=== PATIENT | male | born 1990 | race Caucasian/White ===

== ENCOUNTER 2019-01-13 16:44 | Emergency (ER) | payer SELFPAY ==
--- NOTE | 2019-01-13 17:41 | ER Document Report ---
ED Medical Screen (RME) - General Chief Complaint: Chest Pain Stated Complaint: CHEST PAIN Time Seen by Provider: 01/13/19 17:36 - HPI Notes: 01/13/19 17:39 Patient is a 28-year-old male with no significant past medical history presents complaining of chest pain. Patient states that the pain started a couple days ago. He has had an occ dry cough for the past couple weeks. Denies drug allergies. He is able to eat and drink without difficulty. He is urinating normally and having normal bowel movements. Denies any prolonged immobilization, distance travel, recent surgery/trauma, personal cancer history, hormone use, smoking, or previous DVT/PE. Denies GEORGES, fever, neck pain, URI, n/v/d, SOB, dyspnea, Abd pain, dysuria, back pain, or rash. I have treated and performed a rapid initial assessment of this patient. A co mprehensive ED assessment and evaluation of the patient, analysis of test results and completion of medical decision making process will be conducted by additional ED providers. PHYSICAL EXAMINATION: GENERAL: Well-appearing, well-nourished and in no acute distress. A&Ox4. Answers questions appropriately. LUNGS: Breath sounds clear to auscultation bilaterally and equal. No wheezes rales or rhonchi. HEART: Regular rate and rhythm without murmurs, rubs, gallops. Extremities: No cyanosis, clubbing, or edema b/l. Jean-Claude negative bilaterally. No lower extremity asymmetry. NEUROLOGICAL: Normal speech, normal gait. PSYCH: Normal mood, normal affect. - Related Data Allergies/Adverse Reactions: No Known Allergies Allergy (Unverified 01/13/19 17:35) Physical Exam - Vital signs Vitals: Temp Pulse Resp BP Pulse Ox 98.1 F 80 16 128/80 H 100 01/13/19 17:18 01/13/19 17:18 01/13/19 17:18 01/13/19 17:18 01/13/19 17:18 Course - Vital Signs Vital signs: Temp Pulse Resp BP Pulse Ox 98.1 F 80 16 128/80 H 100 01/13/19 17:18 01/13/19 17:18 01/13/19 17:18 01/13/19 17:18 01/13/19 17:18
--- NOTE | 2019-01-13 18:19 | RADIOLOGY REPORT (SQ) ---
EXAM DESCRIPTION: CHEST 2 VIEWS COMPLETED DATE/TIME: 01/13/2019 5:51 pm REASON FOR STUDY: CP COMPARISON: None. EXAM PARAMETERS: NUMBER OF VIEWS: two views TECHNIQUE: Digital Frontal and Lateral radiographic views of the chest acquired. RADIATION DOSE: NA LIMITATIONS: none FINDINGS: LUNGS AND PLEURA: No opacities, masses or pneumothorax. No pleural effusion. MEDIASTINUM AND HILAR STRUCTURES: No masses or contour abnormalities. HEART AND VASCULAR STRUCTURES: Heart normal size. No evidence for failure. BONES: No acute findings. HARDWARE: None in the chest. OTHER: No other significant finding. IMPRESSION: NO ACUTE RADIOGRAPHIC FINDING IN THE CHEST. TECHNICAL DOCUMENTATION: JOB ID: [id number] TE2- All Rights Reserved Reading location - IP/workstation name: [email or web address]
[2019-01-13 18:35] LABS: ABSOLUTE EOSINOPHILS # (AUTO) 0.1 10^3/uL (0.0-0.6); ABSOLUTE LYMPHOCYTES (AUTO) 2.4 10^3/uL (0.5-4.7); ABSOLUTE MONOCYTES (AUTO) 0.5 10^3/uL (0.1-1.4); ABSOLUTE NEUT (AUTO) 2.9 10^3/uL (1.7-8.2); BASOPHILS % (AUTO) 0.7 % (0-2); EOSINOPHILS % (AUTO) 1.2 % (0-6); HEMATOCRIT 47.4 % (37.9-51.0); HEMOGLOBIN 16.7 g/dL (13.5-17.0); LYMPHOCYTES % (AUTO) 40.8 % (13-45); MEAN CORPUSCULAR HEMOGLOBIN 30.9 pg (27.0-33.4); MEAN CORPUSCULAR HGB CONC 35.3 g/dL (32.0-36.0); MEAN CORPUSCULAR VOLUME 88 fl (80-97); MONOCYTES % (AUTO) 8.5 % (3-13); PLATELET COUNT 242 10^3/uL (150-450); RED BLOOD COUNT 5.42 10^6/uL (4.35-5.55); SEGMENTED NEUTROPHILS % (AUTO) 48.8 % (42-78); TOTAL CELLS COUNTED % (AUTO) 100 %
[2019-01-13 18:59] LABS: ALBUMIN 4.7 g/dL (3.5-5.0); ALKALINE PHOSPHATASE 51 U/L (38-126); ANION GAP 12 (5-19); ASPARTATE AMINO TRANSFERASE 33 U/L (17-59); BILIRUBIN,DIRECT 0.1 mg/dL (0.0-0.4); BILIRUBIN,TOTAL 0.7 mg/dL (0.2-1.3); BLOOD UREA NITROGEN 12 mg/dL (7-20); CALCIUM 9.5 mg/dL (8.4-10.2); CARBON DIOXIDE 26 mmol/L (22-30); CHLORIDE 104 mmol/L (98-107); GLUCOSE 87 mg/dL (75-110); POTASSIUM 4.3 mmol/L (3.6-5.0); TOTAL PROTEIN 7.8 g/dL (6.3-8.2)
[2019-01-13] MEDS ORDERED: SUCRALFATE 1 GM TABLET PO ONE (19:08)
[2019-01-13] MEDS ORDERED: IPRATROPIUM/ALBUTEROL 0.5-2.5 MG/3 ML AMPUL NEB ONE (19:08)
[2019-01-13] MEDS ORDERED: FAMOTIDINE 20 MG TABLET PO ONE (19:09)
--- NOTE | 2019-01-13 19:11 | ER Document Report ---
ED Cardiac - General Chief Complaint: Chest Pain Stated Complaint: CHEST PAIN Time Seen by Provider: 01/13/19 17:36 Primary Care Provider: [facility] [Provider Group] - Follow up as needed Notes: Patient is a 28-year-old male who presents to the emergency department with a chief complaint of chest pain. Patient states that the pain is in the left side of his chest. It started about 3 days ago. Patient states that he does some heavy lifting at work. He went to work and he felt a jerk sensation in his chest and in his right leg. Patient also states that it feels like it is a burning sensation. States that he attempted to take [id number] 24-hour allergy relief and medication for GERD, but did not have any relief of his symptoms. Patient states that he ended up having cold sweats earlier today. - Related Data Allergies/Adverse Reactions: No Known Allergies Allergy (Unverified 01/13/19 17:35) Past Medical History - Social History Smoking Status: Never Smoker Frequency of alcohol use: Social Drug Abuse: None Family History: Reviewed & Not Pertinent Patient has suicidal ideation: No Patient has homicidal ideation: No Review of Systems - Review of Systems Notes: REVIEW OF SYSTEMS: CONSTITUTIONAL : Denies recent illness. Denies recent unintentional weight loss. See HPI. EENT: See HPI. CARDIOVASCULAR: See HPI. RESPIRATORY: Denies shortness of breath, cough, congestion, difficulty breathing, or wheezing. GASTROINTESTINAL: Denies nausea, vomiting, and diarrhea. Denies abdominal pain. Denies constipation. GENITOURINARY: Denies difficulty urinating, burning, blood in urine, urgency or frequency. MUSCULOSKELETAL: See HPI. SKIN: Denies rash, itchiness, or lesions HEMATOLOGIC : Denies easy bruising or bleeding. LYMPHATIC: Denies swollen, painful, enlarged glands. NEUROLOGICAL: Denies no numbness or tingling denies weakness. Denies headache. Denies altered mental status. Denies alteration in speech. PSYCHIATRIC: Denies stress, anxiety, alteration in sleep patterns, or depression. All other systems reviewed and negative. Physical Exam - Vital signs Vitals: Temp Pulse Resp BP Pulse Ox 98.1 F 80 16 128/80 H 100 01/13/19 17:18 01/13/19 17:18 01/13/19 17:18 01/13/19 17:18 12/03/19 17:18 - Notes Notes: PHYSICAL EXAMINATION: GENERAL: Appears well, healthy, well-nourished, no acute distress. HEAD: Normocephalic, atraumatic. EYES: PERRL, conjunctiva normal, all extraocular movements intact, sclera nonicteric ENT: Moist mucous membranes. Purulent drainage noted behind left tympanic membrane. NECK: Supple, no noticeable swelling, redness, rash. Normal range of motion. LUNGS: Equal breath sounds bilaterally and clear to auscultation. Expiratory wheezes noted in the right upper lobe. CARDIOVASCULAR: S1-S2, regular rate, regular rhythm. Radial pulses 2+, normal. ABDOMEN: Normoactive bowel sounds. Soft, nontender, no guarding, no rebound tenderness, and no masses palpated. EXTREMITIES: Normal strength and range of motion, no pitting or edema. No cyanosis. NEUROLOGICAL: Moves all extremities upon command. Strength 5/5 in all extremities. PSYCH: Normal mood, normal affect. SKIN: Warm, dry. No rash, lesions, ulcerations noted. Normal skin turgor. Course - Re-evaluation Re-evalutation: 01/13/19 20:19 Patient's hematology is unremarkable. His chemistries and troponin are also unremarkable. Patient states that he feels a little bit better after receiving the DuoNeb treatment, patient states that the chest pain has gotten a little better. He then stated that it may be due to anxiety. Patient states that he does not get a good night sleep. I instructed him to take Benadryl at night to help with sleeping. I do not want to give him Vistaril at this time, as he is starting medications. Patient's insurance will kick in at the beginning of February. He states he will follow-up with a primary care provider at this time. Return precautions were given. Follow-up precautions were given. Verbal discharge instructions were given to the patient. They verbalized understanding. They are stable for discharge. - Vital Signs Vital signs: Temp Pulse Resp BP Pulse Ox 98.1 F 80 20 128/80 H 97 01/13/19 17:35 01/13/19 17:35 01/13/19 18:17 01/13/19 17:35 01/13/19 18:17 - Laboratory Result Diagrams: 01/13/19 18:00 01/13/19 18:00 - EKG Interpretation by Me Additional EKG results interpreted by me: 01/13/19 20:24 Sinus rhythm. Rate 75. MS 144; QRS 94; QT 372; QTc 416. No ST elevations or depressions noted. Discharge - Discharge Clinical Impression: Wheezing Chest pain Qualifiers: Chest pain type: unspecified Qualified Code(s): R07.9 - Chest pain, unspecified Otitis media Qualifiers: Otitis media type: mucoid Chronicity: acute Laterality: left Qualified Code(s): H65.112 - Acute and subacute allergic otitis media (mucoid) (sanguinous) (serous), left ear Condition: Stable Disposition: HOME, SELF-CARE Additional Instructions: You were seen today in the emergency department for chest pain. Your labs, EKG, and chest x-ray are normal, which is reassuring. You are being started on Carafate and Pepcid. Please take them as directed. You are also being sent home with an albuterol inhaler. You can take 1 to 2 puffs every 4-6 hours as needed for shortness of breath or difficulty breathing. At night, you can take Benadryl to help you with allergies and with sleep. During the day, take a 12-hour allergy pill. Prescriptions: Amoxicillin Trihydrate [Amoxil 875 mg Tablet] 1 tab PO BID #20 tablet Sucralfate [Carafate 1 gm Tablet] 1 gm PO ACHS #90 tablet Famotidine [Pepcid 20 mg Tablet] 20 mg PO BID #60 tablet Referrals: [facility] [Provider Group] - Follow up as needed
[2019-01-13] MEDS ORDERED: AMOXICILLIN TRIHYDRATE 500 MG CAPSULE PO ONE (20:25)
[2019-01-13] MEDS ORDERED: ALBUTEROL SULFATE HFA (90 MCG/PUFF) 8 GM MDI (1 MDI/ER DISP) IH PRN (20:25)
[2019-01-13 20:51] VITALS: BP 121/64
--- NOTE | 2019-01-14 00:35 | EKG REPORT ---
SEVERITY:- OTHERWISE NORMAL ECG - SINUS RHYTHM BORDERLINE RIGHT AXIS DEVIATION : Confirmed by: Felicity Smith MD 14-Jan-2019 00:33:50
== END 2019-01-13 20:51 | disposition home or self-care (01) ==
LOC: ER 16:44
DX: H65.112 Acute and subacute allergic otitis media (mucoid) (sanguinous) (serous), left ear (principal); R07.9 Chest pain, unspecified; R06.2 Wheezing
CPT/HCPCS: 93005; 94640; 99285; 36415; 85025; 80053; 84484; 71046; 93010; J3490; J7620